=== PATIENT | male | born 1970 | race Caucasian/White ===

== ENCOUNTER 2019-11-19 07:04 | Emergency (ER) | payer MEDICAID ==
[~2019-11-19] VITALS: Ht 180.3 cm; Wt 67.0 kg
[2019-11-19] MEDS ORDERED: ONDANSETRON 2MG/ML, 2ML IVPush ONE (07:30)
[2019-11-19] MEDS ORDERED: SODIUM CHLORIDE 0.9% 1,000ML IVBOLUS ONE (07:30)
[2019-11-19] MEDS ORDERED: SODIUM CHLORIDE FLUSH 10ML SYR IVF ONE (07:30)
[2019-11-19] MEDS ORDERED: ONDANSETRON 2MG/ML, 2ML ONE (07:31)
[2019-11-19 07:44] VITALS: BP 135/87
--- NOTE | 2019-11-19 07:47 | NUR ---
PT WITH C/O N/V/D X DAYS. PT IN WHEELCHAIR IN TRIAGE, ABLE TO AMBULATE TO BED WITHOUT DIFFICULTY. ER PROVIDER IN TO EVAL PT. ORDERS RECIEVED. PT APPEARS COMFORTABLE, PIV INITIATED. PT MEDICATED PER OCT. VSS. PT TO BP, CONT PULSE OX. CALL LIGHT IN REACH
[2019-11-19 07:58] LABS: BASOPHILS # (AUTO) 0.07 x10^3/uL (0-0.1); BASOPHILS % (AUTO) 1 % (0-1); EOSINOPHILS # (AUTO) 0.08 x10^3/uL (0-0.4); EOSINOPHILS % (AUTO) 1 % (1-7); LYMPHOCYTES # (AUTO) 1.57 x10^3/uL (1-3.4); LYMPHOCYTES % (AUTO) 16 % (22-44); MD NO; MEAN CORPUSCULAR HEMOGLOBIN 30.6 pg (27.5-34.5); MEAN CORPUSCULAR HGB CONC 32.9 g/dL (33.2-36.2); MEAN CORPUSCULAR VOLUME 93.2 fL (81-97); MONOCYTES # (AUTO) 0.63 x10^3/uL (0.2-0.8); MONOCYTES % (AUTO) 6 % (2-9); NEUTROPHILS # (AUTO) 7.45 x10^3/uL (1.8-6.8); NEUTROPHILS % (AUTO) 76 % (42-75); PLATELET COUNT 318 x10^3/uL (130-400); RED BLOOD COUNT 4.89 x10^6/uL (4.38-5.82); RED CELL DISTRIBUTION WIDTH 13.7 % (9.4-14.8)
[2019-11-19 08:10] LABS: ALANINE AMINOTRANSFERASE 27 U/L (12-78); ALBUMIN 3.7 g/dL (3.4-5.0); ANION GAP 6 mmol/L (5-15); CHLORIDE 107 mmol/L (98-107); CREATININE 0.82 mg/dL (0.7-1.3)
[2019-11-19 08:12] LABS: ALKALINE PHOSPHATASE 85 U/L (45-117); BILIRUBIN,TOTAL 0.4 mg/dL (0.2-1.0)
== END 2019-11-19 09:16 | disposition home or self-care (01) ==
LOC: ED 07:59
DX: K52.9 Noninfective gastroenteritis and colitis, unspecified (principal); F17.290 Nicotine dependence, other tobacco product, uncomplicated
CPT/HCPCS: 36415; 80053; 83690; 85025; 96374; 99283; J2405; J7030

== ENCOUNTER 2020-01-15 08:06 | Emergency (ER) | payer MEDICAID ==
[~2020-01-15] VITALS: Ht 180.3 cm; Wt 75.0 kg
--- NOTE | 2020-01-15 08:19 | NUR ---
BP CUFF, PULSE OX IN PLACE. PT RESTING, LIGHTS DIMMED PER PT REQUEST. VSS. CALL LIGHT WITHIN REACH.
[2020-01-15 08:41] LABS: BASOPHILS # (AUTO) 0.05 x10^3/uL (0-0.1); BASOPHILS % (AUTO) 1 % (0-1); EOSINOPHILS # (AUTO) 0.18 x10^3/uL (0-0.4); EOSINOPHILS % (AUTO) 3 % (1-7); LYMPHOCYTES # (AUTO) 1.45 x10^3/uL (1-3.4); LYMPHOCYTES % (AUTO) 24 % (22-44); MD NO; MEAN CORPUSCULAR HEMOGLOBIN 30.9 pg (27.5-34.5); MEAN CORPUSCULAR HGB CONC 33.1 g/dL (33.2-36.2); MEAN CORPUSCULAR VOLUME 93.5 fL (81-97); MEAN PLATELET VOLUME 7.4 fL (7.4-10.4); MONOCYTES # (AUTO) 0.48 x10^3/uL (0.2-0.8); MONOCYTES % (AUTO) 8 % (2-9); NEUTROPHILS # (AUTO) 3.96 x10^3/uL (1.8-6.8); NEUTROPHILS % (AUTO) 65 % (42-75); PLATELET COUNT 261 x10^3/uL (130-400); RED BLOOD COUNT 4.59 x10^6/uL (4.38-5.82); RED CELL DISTRIBUTION WIDTH 14.5 % (9.4-14.8)
--- NOTE | 2020-01-15 08:47 | NUR ---
US AT BS.
[2020-01-15 08:52] LABS: ALBUMIN 3.3 g/dL (3.4-5.0); ANION GAP 8 mmol/L (5-15); CALCIUM 8.4 mg/dL (8.5-10.1); CHLORIDE 106 mmol/L (98-107); CREATININE 0.87 mg/dL (0.7-1.3)
--- NOTE | 2020-01-15 09:08 | NUR ---
ALL RESULTS BACK, PT FOR RECHECK.
[2020-01-15 09:11] VITALS: BP 130/88
== END 2020-01-15 09:36 | disposition home or self-care (01) ==
LOC: ED 09:16
DX: K40.91 Unilateral inguinal hernia, without obstruction or gangrene, recurrent (principal); L03.115 Cellulitis of right lower limb; L03.116 Cellulitis of left lower limb; R60.0 Localized edema
CPT/HCPCS: 36415; 80048; 82040; 85025; 99284

== ENCOUNTER 2020-05-09 18:16 | Emergency (ER) | payer MEDICAID ==
[~2020-05-09] VITALS: Ht 180.3 cm; Wt 69.0 kg
[2020-05-09 18:25] VITALS: BP 124/85
--- NOTE | 2020-05-09 20:46 | NUR ---
TEAR DOWN WORKER: PT. TO ROOM FROM LOBBY AT THIS TIME.
--- NOTE | 2020-05-09 20:58 | NUR ---
RIGHT HAND, 4TH DISTAL DIGIT, REDNESS, SWELLING PAIN DENIES TRAUMA.
--- NOTE | 2020-05-09 21:00 | NUR ---
ERP AT BEDSIDE.
[2020-05-09] MEDS ORDERED: LIDOCAINE-MPF 1%, 5ML ONE (21:12)
--- NOTE | 2020-05-09 21:15 | NUR ---
LIDO SET UP TO BEDSIDE.
[2020-05-09] MEDS ORDERED: LIDOCAINE 1%, 10ML INFIL ONE (21:30)
[2020-05-09] MEDS ORDERED: NEOSPORIN OINT. PKT 1 PACKET ONE (21:45)
--- NOTE | 2020-05-09 21:52 | NUR ---
DC HOME AFTER WOUND CARE, DRESSING SUPPLIES. PT TO FILL RX, VERBALIZES UNDERSTANDING OF INSTRUCT.
== END 2020-05-09 21:54 | disposition home or self-care (01) ==
LOC: ED 21:48
DX: L03.011 Cellulitis of right finger (principal); F17.200 Nicotine dependence, unspecified, uncomplicated
CPT/HCPCS: 10060; 99283